=== PATIENT | female | born 1970 | race African-American/Black ===

== ENCOUNTER 2024-08-23 10:47 | Emergency (ER) | payer SELFPAY ==
[2024-08-23 10:52] VITALS: BP 110/78
--- NOTE | 2024-08-23 11:56 | ED.GENMED ---
History of Present Illness
General
Chief Complaint: Musculo-Skeletal Complaint
Time Seen by Provider: 08/23/24 11:30
History of Present Illness
History of Present Illness:
TIME OF INITIAL ENCOUNTER: 11:50 AM
HPI: The patient works at [employer]. She has been working with a rather heavy patient there and feels that she 'did something to my right shoulder'. Today she had some paresthesias to the fingers of the right hand which was brief
and self-limited. She has no weakness. She had worsening symptoms a couple of days ago.
EXAM:
GENERAL: Well appearing in no distress
HEENT: Moist oral mucosa
NEUROLOGIC: Excellent strength all extremities, no obvious coordination deficits
PSYCHIATRIC: Appropriate mental status, normal insight and judgement
EXTREMITIES: There is no clavicular tenderness, there is no AC tenderness, there is no proximal humerus tenderness, negative empty can test, however when she tries to take her jacket off she clearly has discomfort
SKIN: No rash, no lesions
NUMBER AND COMPLEXITY OF PROBLEMS ADDRESSED AT THE ENCOUNTER
� Chronic conditions affecting care: No significant past medical history
� Acute Exacerbation and/or Progression of Chronic Illness: This is an acute problem
� Differential Diagnosis includes: Rotator cuff pathology, cervical radiculopathy, highly doubt fracture
AMOUNT AND/OR COMPLEXITY OF DATA TO BE REVIEWED AND ANALYZED
� I performed an independent evaluation of and my interpretation is:
EKG:
CT:
X-rays:
Laboratory Studies:
Other:
� Review of other/old records: I reviewed records, the patient was also seen here for right shoulder pain 1 year ago and at that time had a negative x-ray
� Clinical information was obtained by an independent historian: None needed
� Prescriptions/Medications Considered but not given:
� Further testing considered but not performed: Offered and considered x-ray however there is no direct trauma and patient declined imaging
RISK OF COMPLICATIONS AND/OR MORBIDITY OR MORTALITY OF PATIENT MANAGEMENT
� Social determinants of health affecting care: Lives at home, works at [employer]
� Discussion with other providers:
� Escalation of care including admission/observation vs risk of discharge considered: We talked about the possibly of cervical radiculopathy however the patient has no neck pain and the paresthesias that she had earlier are
resolved. Favor more of a rotator cuff pathology�will give shoulder sling and recommend that she follows up with Dr. Diaz if symptoms persist or through the orthopedist recommended by her employer.
ANY OTHER UPDATES:
Just prior to discharge, the patient does request prescription for anti-inflammatory
Phy Exam
Physical Exam
Physical Exam:
See HPI
Course
Orders/Labs/Results
Orders:
Orders
08/23/24 11:55
Sling Right-Treatment ONCE
Vital Signs
Initial and Last Documented VS:
Initial Vital Signs
Temp Pulse Resp BP Pulse Ox
36.6 C 68 16 110/78 98
08/23/24 10:52 08/23/24 10:52 08/23/24 10:52 08/23/24 10:52 08/23/24 10:52
Last Documented Vital Signs
Temp Pulse Resp BP Pulse Ox
36.6 C 70 16 110/78 98
08/23/24 10:52 08/23/24 12:29 08/23/24 12:29 08/23/24 10:52 08/23/24 12:29
*Critical Care Note
Total Time (30-74mins, 75-104mins- exclusive of procedures): Not Applicable
ED Attending Note
-
Portions of this chart may have been created with voice recognition software.� Occasional wrong word or��sound alike� substitutions may have occurred due to the inherent limitations of voice recognition software.
Discharge Plan
Departure
Patient Disposition: Home (Routine Discharge)
Date of Disposition: 08/23/24
Time of Disposition: 11:55
Patient with high blood pressure during this ER visit?: Yes
Discharge Problem:
Rotator cuff arthropathy
Prescriptions:
New
naproxen 500 mg tablet
500 mg PO BID PRN (Reason: Pain) Qty: 14 0RF
Referrals:
NONE,* [Family Provider] -
Savage Diaz MD [Active] - As needed
Activity Restrictions/Additional Instructions:
Consider using [id number] ibuprofen. We have given you a sling for comfort. If your pain persist, I recommend you follow-up with orthopedics such as Dr. Diaz.
Interventions
Interventions:
*Risk Screen - Suicide Last Done: 08/23/24 10:52
*General Assessment Last Done: 08/23/24 10:52
*Neglect/Abuse Screening Last Done: 08/23/24 10:55
*ED COVID-19 Vaccine History Last Done: 08/23/24 11:21
*Nursing Disposition Last Done: 08/23/24 12:29
ED-Musculoskeletal Assessment Last Done: 08/23/24 11:21
Discharge Date and Time
Discharge Date/Time: 08/23/24 12:29
Print Language: [id number]
== END 2024-08-23 12:29 | disposition home or self-care (01) ==
LOC: EMR 10:47
PROVIDERS: EMERGENCY PHYSICIAN Emergency Medicine
DX: M12.811 Other specific arthropathies, not elsewhere classified, right shoulder (principal)
CPT/HCPCS: 99282